=== PATIENT | female | born 1995 | race African-American/Black ===

== ENCOUNTER 2021-12-25 09:36 | Emergency (ER) | payer MEDICAID, OTHER ==
[~2021-12-25] VITALS: Ht 167.6 cm; Wt 91.0 kg
[~2021-12-25 09:36] MED LIST: FOLI-43; PREN1TAB49
[2021-12-25 09:49] VITALS: BP 153/101
[2021-12-25 10:44] LABS: BASOPHILS % 0.5 % (0.0-2.0); EOSINOPHILS % 1.2 % (0.0-5.0); HEMATOCRIT. 39.7 % (36.0-48.0); HEMOGLOBIN. 13.4 g/dL (12.0-16.0); LYMPHOCYTES % 25.1 % (20.0-50.0); MEAN CORPUSCULAR HEMOGLOBIN 30.9 pg (28.0-32.0); MEAN CORPUSCULAR VOLUME 91.2 fL (81.0-99.0); MONOCYTES % 6.5 % (2.0-8.0); NEUTROPHILS % 66.7 % (40.0-76.0); PLATELET 279 x1000/uL (130-400); RED BLOOD CELL COUNT 4.36 mill/uL (4.2-5.4); RED CELL DISTRIBUTION WIDTH 12.7 % (11.6-14.6)
[2021-12-25 10:50] LABS: CHLORIDE 108 mEq/L (98-107)
[2021-12-25 11:13] LABS: B-HCG QUANTITATIVE 109482 mIU/mL (<3)
[2021-12-25] MEDS ORDERED: ONDA4TAB50 MT ×3 (13:49→13:50)
== END 2021-12-25 13:56 | disposition home or self-care (01) ==
LOC: ER 09:36
DX: O20.0 Threatened abortion (principal); O26.891 Other specified pregnancy related conditions, first trimester; R03.0 Elevated blood-pressure reading, without diagnosis of hypertension; O34.11 Maternal care for benign tumor of corpus uteri, first trimester; D25.2 Subserosal leiomyoma of uterus; O34.81 Maternal care for other abnormalities of pelvic organs, first trimester; N83.11 Corpus luteum cyst of right ovary; Z3A.08 8 weeks gestation of pregnancy
CPT/HCPCS: 36415; 76801; 80053; 84702; 85025; 86850; 86900; 99284